=== PATIENT | male | born 1955 | race Caucasian/White ===

== ENCOUNTER → 2017-09-11 | Outpatient (CLI) | payer BC, OTHER ==
[2017-09-11 18:11] LABS: PROSTATIC SPECIFIC AG MONITOR 2.78 NG/ML (< 4.0)
[2017-09-12 11:10] LABS: TESTOSTERONE 579 NG/DL (241-827)
== END ==
LOC: M WUC 11:20
DX: E29.1 Testicular hypofunction (principal)
CPT/HCPCS: 84403

== ENCOUNTER → 2018-01-25 | Outpatient (REF) | payer BC, OTHER ==
[2018-01-25 18:42] LABS: SLIDE REVIEW Report; SOURCE PERIPHERAL SMEAR
[2018-01-26 08:35] LABS: CONTROL LINE HPYORI INT CTR LINE PRESENT; H PYLORI QUALITATIVE IgG NEGATIVE (NEGATIVE)
[2018-01-27 14:16] LABS: ANTINUCLEAR ANTIBODIES DIRECT Negative (Negative)
== END ==
LOC: M LAB REF 17:28
DX: D64.9 Anemia, unspecified (principal)
CPT/HCPCS: 86677

== ENCOUNTER → 2018-01-30 | Outpatient (CLI) | payer BC, OTHER | LOC: M RAD 06:02 | DX: R16.1 Splenomegaly, not elsewhere classified (principal) | CPT/HCPCS: 76705 ==

== ENCOUNTER → 2018-05-16 | Outpatient (REF) | payer BC, OTHER ==
[2018-05-16 13:54] LABS: AMORPHOUS SEDIMENT LARGE (NEGATIVE); APPEARANCE, URINE TURBID (CLEAR); BACTERIA, URINE AUTO NEGATIVE (NEGATIVE); BILIRUBIN, URINE AUTO NEGATIVE (NEGATIVE); BLOOD, URINE BLOOD 1+ (NEGATIVE); COLOR, URINE YELLOW (YELLOW); GLUCOSE, URINE (UA) AUTO NEGATIVE (NEGATIVE); KETONE, URINE AUTO NEGATIVE (NEGATIVE); LEUKOCYTE ESTERASE, URINE AUTO NEGATIVE (NEGATIVE); NITRITE, URINE AUTO NEGATIVE (NEGATIVE); PROTEIN, URINE AUTO NEGATIVE (NEGATIVE); RBC, URINE AUTO 7 /HPF (0-3); SPECIFIC GRAVITY URINE AUTO 1.023 (1.002-1.035); SQUAMOUS EPITHELIAL CELL UR AU 0 /HPF (0-6); UROBILINOGEN, URINE AUTO 0.2 mg/dL (0.0-2.0); WBC, URINE AUTO 2 /HPF (0-3)
== END ==
LOC: M SMT 13:12
DX: R35.0 Frequency of micturition (principal)
CPT/HCPCS: 81001

== ENCOUNTER → 2018-06-14 | Outpatient (REF) | payer OTHER ==
[2018-06-14 18:24] LABS: APPEARANCE, URINE CLEAR (CLEAR); BACTERIA, URINE AUTO NEGATIVE (NEGATIVE); BILIRUBIN, URINE AUTO NEGATIVE (NEGATIVE); BLOOD, URINE BLOOD 1+ (NEGATIVE); COLOR, URINE YELLOW (YELLOW); GLUCOSE, URINE (UA) AUTO NEGATIVE (NEGATIVE); KETONE, URINE AUTO NEGATIVE (NEGATIVE); LEUKOCYTE ESTERASE, URINE AUTO TRACE (NEGATIVE); MUCUS, URINE SMALL (NEGATIVE); NITRITE, URINE AUTO NEGATIVE (NEGATIVE); PROTEIN, URINE AUTO NEGATIVE (NEGATIVE); RBC, URINE AUTO 1 /HPF (0-3); SPECIFIC GRAVITY URINE AUTO 1.014 (1.002-1.035); SQUAMOUS EPITHELIAL CELL UR AU 0 /HPF (0-6); UROBILINOGEN, URINE AUTO 0.2 mg/dL (0.0-2.0); WBC, URINE AUTO 2 /HPF (0-3)
== END ==
LOC: M SMT 17:20
DX: R31.29 Other microscopic hematuria (principal)

== ENCOUNTER → 2018-06-26 | Outpatient (REF) | payer OTHER ==
[2018-06-26 17:51] LABS: AMORPHOUS SEDIMENT LARGE (NEGATIVE); APPEARANCE, URINE TURBID (CLEAR); BACTERIA, URINE AUTO NEGATIVE (NEGATIVE); BILIRUBIN, URINE AUTO NEGATIVE (NEGATIVE); BLOOD, URINE BLOOD NEGATIVE (NEGATIVE); COLOR, URINE YELLOW (YELLOW); GLUCOSE, URINE (UA) AUTO NEGATIVE (NEGATIVE); KETONE, URINE AUTO NEGATIVE (NEGATIVE); LEUKOCYTE ESTERASE, URINE AUTO NEGATIVE (NEGATIVE); NITRITE, URINE AUTO NEGATIVE (NEGATIVE); PROTEIN, URINE AUTO NEGATIVE (NEGATIVE); RBC, URINE AUTO 2 /HPF (0-3); SPECIFIC GRAVITY URINE AUTO 1.021 (1.002-1.035); SQUAMOUS EPITHELIAL CELL UR AU 0 /HPF (0-6); UROBILINOGEN, URINE AUTO 0.2 mg/dL (0.0-2.0); WBC, URINE AUTO 0 /HPF (0-3)
== END ==
LOC: M SMT 17:10
DX: R31.29 Other microscopic hematuria (principal)

== ENCOUNTER → 2018-06-26 | Outpatient (CLI) | payer BC, OTHER ==
[2018-06-26 17:59] LABS: ANION GAP 7 MEQ/L (8-16); BLOOD UREA NITROGEN 25 MG/DL (7-18); CALCIUM LEVEL 8.5 MG/DL (8.8-10.2); CARBON DIOXIDE LEVEL 23 MEQ/L (21-32); CHLORIDE LEVEL 112 MEQ/L (98-107); CREATININE FOR GFR 1.11 MG/DL (0.70-1.30); GLOMERULAR FILTRATION RATE > 60.0 (>49); GLUCOSE, FASTING 99 MG/DL (70-100); POTASSIUM SERUM 4.8 MEQ/L (3.5-5.1); SODIUM LEVEL 142 MEQ/L (136-145)
== END ==
LOC: M SMT 13:46
DX: R31.29 Other microscopic hematuria (principal)
CPT/HCPCS: 80048

== ENCOUNTER → 2018-07-10 | Outpatient (CLI) | payer BC, OTHER ==
[~2018-07-10] MED LIST: ISOVUE-370 76% 100ML VIAL (Q9967) As Ordered
== END ==
LOC: M RAD 09:00
DX: R31.29 Other microscopic hematuria (principal); N28.1 Cyst of kidney, acquired; N40.0 Benign prostatic hyperplasia without lower urinary tract symptoms; I70.0 Atherosclerosis of aorta; K57.90 Diverticulosis of intestine, part unspecified, without perforation or abscess without bleeding
CPT/HCPCS: Q9967

== ENCOUNTER → 2018-12-05 | Outpatient (REF) | payer OTHER ==
[~2018-12-05] MED LIST changes: +ATOR40TA75 PO; +FLOM0.4C39 PO; -ISOVUE-370 76% 100ML VIAL (Q9967) As Ordered; +METO1TAB7 PO; +OMEP40CA2 PO; +VITAMIN B12
[2018-12-05 13:08] LABS: BASO % 0.7 % (0.0-1.0); EOS # 0.1 10^3/uL (0.0-0.50); EOS % 1.6 % (0.0-3.0); HEMATOCRIT 50.4 % (42.0-52.0); HEMOGLOBIN 16.7 g/dl (13.5-17.5); LYMPH # 1.2 10^3/uL (1.5-4.5); LYMPH % 19.4 % (24.0-44.0); MEAN CORPUSCULAR HEMOGLOBIN 29.7 pg (27.0-33.0); MEAN CORPUSCULAR HGB CONC 33.1 g/dl (32.0-36.5); MEAN CORPUSCULAR VOLUME 89.5 fl (80.0-96.0); MONO # 0.6 10^3/uL (0.0-0.8); MONO % 9.9 % (0.0-5.0); NEUTROPHILS # 4.2 10^3/uL (1.8-7.7); NEUTROPHILS % 67.9 % (36.0-66.0); RED BLOOD COUNT 5.63 10^6/uL (4.30-6.10); WHITE BLOOD COUNT 6.1 10^3/uL (4.0-10.0)
[2018-12-05 13:35] LABS: ERYTHROCYTE SEDIMENTATION RATE 1 mm/hr (0-20)
[2018-12-05 14:06] LABS: ALBUMIN 3.6 GM/DL (3.2-5.2); ALT/SGPT 31 U/L (12-78); BILIRUBIN,TOTAL 0.8 MG/DL (0.2-1.0); BLOOD UREA NITROGEN 19 MG/DL (7-18); CALCIUM LEVEL 8.7 MG/DL (8.8-10.2); CARBON DIOXIDE LEVEL 24 MEQ/L (21-32); CHLORIDE LEVEL 108 MEQ/L (98-107); CREATININE FOR GFR 0.97 MG/DL (0.70-1.30); FREE T4 0.86 NG/DL (0.76-1.46); GLOMERULAR FILTRATION RATE > 60.0 (>49); GLUCOSE, FASTING 86 MG/DL (70-100); HEMOGLOBIN A1c 5.2 %; POTASSIUM SERUM 4.2 MEQ/L (3.5-5.1); RHEUMATOID FACTOR QUANT < 10.0 IU/ML (<15.0); SODIUM LEVEL 138 MEQ/L (136-145); TOTAL PROTEIN 6.7 GM/DL (6.4-8.2); VITAMIN B12 LEVEL 1055 PG/ML (247-911)
[2018-12-05 14:31] LABS: FOLATE 10.1 NG/ML (>5.4)
[2018-12-05 14:33] LABS: PLATELET COUNT, AUTOMATED 114 10^3/uL (150-450)
== END ==
LOC: M LABNEURO 10:39
PROVIDERS: ATTEND Psychiatry & Neurology Neurology
DX: E11.9 Type 2 diabetes mellitus without complications (principal); E07.9 Disorder of thyroid, unspecified

== ENCOUNTER → 2019-07-16 | Outpatient (CLI) | payer BC, OTHER ==
[~2019-07-16] MED LIST changes: -OMEP40CA2 PO; +OMEP40CA97 PO
--- NOTE | 2019-07-16 12:54 | REP ---
Clinical: Stenosis. Technique: AP and lateral views of the cervical spine. Findings: Evidence of prior anterior fixation at C4 - C6. Alignment is maintained. Spinous processes appear normal. Impression: Anterior fixation at C4 - C6. Alignment maintained. Electronically Signed by Ahsan Hooper MD 07/16/2019 12:44 P
== END ==
LOC: M RAD 12:12
PROVIDERS: ATTEND Physician Assistant
DX: M48.02 Spinal stenosis, cervical region (principal)

== ENCOUNTER → 2021-11-14 | Outpatient (CLI) | payer MEDICARE, OTHER ==
[~2021-11-14] MED LIST changes: +ATOR1TAB21 PO; +FINA5TAB2 PO; +OMEP40CA4 PO; -OMEP40CA97 PO; +TRIA0.5O TOP
== END ==
LOC: M LABSMTC 10:24
PROVIDERS: ATTEND Anesthesiology
DX: Z01.812 Encounter for preprocedural laboratory examination (principal); Z20.822 Contact with and (suspected) exposure to COVID-19

== ENCOUNTER 2021-11-19 11:48 | Day surgery (SDC) | payer MEDICARE, BC, OTHER ==
[~2021-11-19] VITALS: Ht 175.3 cm; Wt 109.8 kg
[~2021-11-19 11:48] MED LIST changes: +NS 1,000 ML IV ONE
[2021-11-19] MEDS ORDERED: propofoL 200 MG/20 ML VIAL As Ordered ONE ×2 (12:21→13:49)
[2021-11-19] MEDS ORDERED: LIDOCAINE 2% 100MG/5ML SDV (FOR ANES.) As Ordered ONE (12:21)
[2021-11-19 14:16] VITALS: BP 120/63
== END 2021-11-19 14:28 | disposition home or self-care (01) ==
LOC: M OPP 11:48
PROVIDERS: ATTEND Surgery
DX: K63.5 Polyp of colon (principal); K62.5 Hemorrhage of anus and rectum; K64.2 Third degree hemorrhoids; K57.30 Diverticulosis of large intestine without perforation or abscess without bleeding; K44.9 Diaphragmatic hernia without obstruction or gangrene; K21.00 Gastro-esophageal reflux disease with esophagitis, without bleeding; Z79.899 Other long term (current) drug therapy; Z87.891 Personal history of nicotine dependence

== ENCOUNTER → 2023-12-05 | Outpatient (CLI) | payer MEDICARE, BC, OTHER ==
[~2023-12-05] MED LIST changes: -NS 1,000 ML IV ONE
== END ==
LOC: M WUC 14:10
PROVIDERS: ATTEND Nurse Practitioner Adult Health
DX: J20.9 Acute bronchitis, unspecified (principal); B96.0 Mycoplasma pneumoniae [M. pneumoniae] as the cause of diseases classified elsewhere

== ENCOUNTER → 2024-03-30 | Outpatient (CLI) | payer MEDICARE, BC ==
[~2024-03-30] MED LIST changes: +ISOVUE-370 76% 100ML VIAL As Ordered ONE
== END ==
LOC: M RAD 08:07
PROVIDERS: ATTEND Surgery Vascular Surgery
DX: I70.0 Atherosclerosis of aorta (principal); J98.11 Atelectasis
CPT/HCPCS: 71275; Q9967

== ENCOUNTER → 2024-12-26 | Outpatient (CLI) | payer MEDICARE, BC ==
[~2024-12-26] MED LIST changes: -FLOM0.4C39 PO; -ISOVUE-370 76% 100ML VIAL As Ordered ONE; +TAMS-18 PO
[2024-12-26 12:29] LABS: BASO # 0.1 10^3/uL (0.0-0.2); BASO % 0.9 % (0.0-1.0); EOS # 0.3 10^3/uL (0.0-0.5); EOS % 3.7 % (0.0-3.0); HEMATOCRIT 46.3 % (42.0-52.0); HEMOGLOBIN 15.3 g/dl (13.5-17.5); LYMPH # 1.8 10^3/uL (1.5-5.0); LYMPH % 26.2 % (24.0-44.0); MEAN CORPUSCULAR HEMOGLOBIN 29.2 pg (27.0-33.0); MEAN CORPUSCULAR VOLUME 88.4 fl (80.0-96.0); MONO # 0.7 10^3/uL (0.0-0.8); MONO % 10.1 % (2.0-8.0); PLATELET COUNT, AUTOMATED 162 10^3/uL (150-450); RED BLOOD COUNT 5.24 10^6/uL (4.30-6.10); WHITE BLOOD COUNT 6.7 10^3/uL (4.0-10.0)
[2024-12-26 12:55] LABS: ALBUMIN 3.6 G/DL (3.2-5.2); ALKALINE PHOSPHATASE 70 U/L (40-129); ALT/SGPT 33 U/L (7.0-40); AST/SGOT 21 U/L (<34); BILIRUBIN,TOTAL 0.6 MG/DL (0.3-1.2); BLOOD UREA NITROGEN 20 MG/DL (9-23); CALCIUM LEVEL 9.2 MG/DL (8.3-10.6); CARBON DIOXIDE LEVEL 26 MMOL/L (20-31); CHLORIDE LEVEL 109 MMOL/L (98-107); CREATININE FOR GFR 0.91 MG/DL (0.70-1.30); GLOMERULAR FILTRATION RATE > 90.0 (>49); GLUCOSE, FASTING 103 MG/DL (74-106); POTASSIUM SERUM 4.6 MMOL/L (3.5-5.1); SODIUM LEVEL 145 MMOL/L (136-145); TOTAL PROTEIN 6.9 G/DL (5.7-8.2)
== END ==
LOC: M RAD 11:36
PROVIDERS: ATTEND Podiatrist
DX: Z01.818 Encounter for other preprocedural examination (principal); M20.41 Other hammer toe(s) (acquired), right foot; M79.671 Pain in right foot

== ENCOUNTER → 2025-03-04 | Outpatient (CLI) | payer MEDICARE, BC | LOC: M SOG 07:29 | PROVIDERS: ATTEND Physician Assistant | DX: M25.542 Pain in joints of left hand (principal); M19.042 Primary osteoarthritis, left hand ==

== ENCOUNTER → 2025-04-01 | Outpatient (CLI) | payer MEDICARE, BC ==
[2025-04-01 11:16] LABS: CREATININE FOR GFR 0.90 MG/DL (0.70-1.30); GLOMERULAR FILTRATION RATE > 90.0 (>49)
== END ==
LOC: M LAB 10:12
PROVIDERS: ATTEND Physician Assistant
DX: I71.21 Aneurysm of the ascending aorta, without rupture (principal)

== ENCOUNTER → 2025-04-08 | Outpatient (CLI) | payer MEDICARE, BC ==
[~2025-04-08] MED LIST changes: +ISOVUE-370 76% 100 ML VIAL As Ordered ONE
== END ==
LOC: M RAD 12:29
PROVIDERS: ATTEND Surgery Vascular Surgery
DX: I71.21 Aneurysm of the ascending aorta, without rupture (principal); Q27.8 Other specified congenital malformations of peripheral vascular system; I70.0 Atherosclerosis of aorta; I51.7 Cardiomegaly; J84.9 Interstitial pulmonary disease, unspecified; N28.1 Cyst of kidney, acquired
CPT/HCPCS: 71275; Q9967